=== PATIENT | female | born 1985 | race Asian ===

== ENCOUNTER 2021-01-15 14:55 | Emergency (ER) | payer OTHER ==
[2021-01-15] MEDS ORDERED: MEDROL 4MG DOSEP4 MG PO (15:59)
[2021-01-15] MEDS ORDERED: CYCLOBENZAPRINE10 MG PO (15:59)
== END 2021-01-15 16:05 | disposition home or self-care (01) ==
LOC: FER 14:55
DX: M54.41 Lumbago with sciatica, right side (principal)
CPT/HCPCS: J1100